=== PATIENT | female | born 1985 | race Two or more races ===

== ENCOUNTER 2017-04-13 21:36 | Emergency (ER) | payer OTHER ==
[~2017-04-13] VITALS: Ht 175.3 cm; Wt 74.1 kg
[~2017-04-13 21:36] MED LIST changes: -ADDE1TAB14 PO; -ADVA115A; -CETI10TA; -LEVO100T5; -PROAAER10; -SERT-138
[2017-04-13] MEDS ORDERED: LEVO100T5 (21:56)
[2017-04-13] MEDS ORDERED: ADVA115A (21:56)
[2017-04-13] MEDS ORDERED: CETI10TA (21:56)
[2017-04-13] MEDS ORDERED: PROAAER10 (21:56)
[2017-04-13] MEDS ORDERED: ADDE1TAB14 PO (21:56)
[2017-04-13] MEDS ORDERED: SERT-138 (21:56)
[2017-04-13 22:38] VITALS: BP 120/79
== END 2017-04-13 22:40 | disposition home or self-care (01) ==
LOC: EDBD 21:36 → M ED 21:36
DX: T78.40XA Allergy, unspecified, initial encounter (principal); X58.XXXA Exposure to other specified factors, initial encounter; Y92.9 Unspecified place or not applicable; Y93.9 Activity, unspecified; Y99.8 Other external cause status; J45.909 Unspecified asthma, uncomplicated; E03.9 Hypothyroidism, unspecified; F17.200 Nicotine dependence, unspecified, uncomplicated; Z79.1 Long term (current) use of non-steroidal anti-inflammatories (NSAID); Z79.899 Other long term (current) drug therapy; Z88.8 Allergy status to other drugs, medicaments and biological substances; Z91.09 Other allergy status, other than to drugs and biological substances

== ENCOUNTER → 2017-04-13 | Outpatient (REF) | payer OTHER ==
[~2017-04-13] MED LIST: ADDE1TAB14 PO; ADVA115A; CETI10TA; LEVO100T5; PERCOCET PO; PROAAER10; SERT-138
== END ==
LOC: M SFHCLERA 20:43
PROVIDERS: ATTEND Nurse Practitioner Family
DX: J02.9 Acute pharyngitis, unspecified (principal)

== ENCOUNTER 2021-07-22 13:29 | Emergency (ER) | payer BC, OTHER ==
[~2021-07-22] VITALS: Ht 177.8 cm; Wt 83.9 kg
[~2021-07-22 13:29] MED LIST changes: +ADDE1TAB14 PO; +ADVA115A; +CETI10TA; +LEVO100T5; +PROAAER10; +SERT-138
[2021-07-22] MEDS ORDERED: LEVO112T2 (13:50)
[2021-07-22 15:02] LABS: BASO # 0.1 10^3/uL (0.0-0.2); BASO % 0.7 % (0.0-1.0); EOS # 0.1 10^3/uL (0.0-0.5); EOS % 1.3 % (0.0-3.0); HEMATOCRIT 38.2 % (36.0-47.0); HEMOGLOBIN 13.1 g/dl (12.0-15.5); LYMPH # 2.7 10^3/uL (1.5-5.0); LYMPH % 31.4 % (24.0-44.0); MEAN CORPUSCULAR HEMOGLOBIN 30.5 pg (27.0-33.0); MEAN CORPUSCULAR HGB CONC 34.3 g/dl (32.0-36.5); MONO # 0.5 10^3/uL (0.0-0.8); MONO % 5.8 % (2.0-8.0); NEUTROPHILS # 5.1 10^3/uL (1.5-8.5); NEUTROPHILS % 60.6 % (36.0-66.0); PLATELET COUNT, AUTOMATED 318 10^3/uL (150-450); RED BLOOD COUNT 4.29 10^6/uL (4.00-5.40); WHITE BLOOD COUNT 8.4 10^3/uL (4.0-10.0)
[2021-07-22 15:33] LABS: BLOOD UREA NITROGEN 15 MG/DL (7-18); CALCIUM LEVEL 9.4 MG/DL (8.5-10.1); CARBON DIOXIDE LEVEL 27 MEQ/L (21-32); CHLORIDE LEVEL 108 MEQ/L (98-107); CK-MB VALUE MASS 1.5 NG/ML (<3.6); CPK CREATINE PHOSPHOKINASE 233 U/L (26-192); CREATININE FOR GFR 0.84 MG/DL (0.55-1.30); GLOMERULAR FILTRATION RATE > 60.0 (>60); GLUCOSE, FASTING 83 MG/DL (70-100); MB/CK RELATIVE INDEX 0.64 (< OR =4); POTASSIUM SERUM 3.8 MEQ/L (3.5-5.1); SODIUM LEVEL 140 MEQ/L (136-145); TROPONIN I < 0.02 NG/ML (< 0.10)
--- NOTE | 2021-07-22 16:03 | REP ---
INDICATION: DIZZY. COMPARISON: NONE. TECHNIQUE: CT BRAIN PERFORMED IN THE AXIAL PLANE. CORONAL RECONSTRUCTION IMAGES ARE PERFORMED. FINDINGS: THE VENTRICLES ARE NORMAL IN SIZE AND POSITION. THERE IS NO MIDLINE SHIFT OR MASS EFFECT. FERRO-WHITE DIFFERENTIATION IS WELL MAINTAINED. THERE IS NO ACUTE INTRACRANIAL HEMORRHAGE OR EXTRA-AXIAL FLUID COLLECTION. BONE WINDOW EXAMINATION IS UNREMARKABLE. VISUALIZED MASTOID AIR CELLS AND PARANASAL SINUSES ARE CLEAR. IMPRESSION: NEGATIVE NONCONTRAST CT BRAIN. <Electronically signed by Trav Montiel > 07/22/21 1600
[2021-07-22] MEDS ORDERED: ISOVUE-370 76% 100ML VIAL As Ordered ONE (17:01)
[2021-07-22 17:11] LABS: MAGNESIUM LEVEL 2.1 MG/DL (1.8-2.4)
[2021-07-22 17:55] LABS: FREE T4 0.93 NG/DL (0.76-1.46); THYROID STIMULATING HORMONE 0.898 uIU/ML (0.358-3.740)
--- NOTE | 2021-07-22 18:44 | REPVR ---
PROCEDURE INFORMATION: Exam: CT Chest With Contrast; Diagnostic Exam date and time: 07/22/2021 5:13 PM Age: 35 years old Clinical indication: Pain; Chest pressure; Additional info: Chest and back pressure and tightness- rule out aaa TECHNIQUE: Imaging protocol: Diagnostic computed tomography of the chest with contrast. 3D rendering (Not supervised by radiologist): MIP and/or 3D reconstructed images were created by the technologist. Radiation optimization: All CT scans at this facility use at least one of these dose optimization techniques: automated exposure control; mA and/or kV adjustment per patient size (includes targeted exams where dose is matched to clinical indication); or iterative reconstruction. Contrast material: ISOVUE 370; Contrast volume: 100 ml; Contrast route: INTRAVENOUS (IV); COMPARISON: No relevant prior studies available. FINDINGS: Thyroid: The partially imaged bilateral thyroid lobes are unremarkable. Lungs: Unremarkable. No consolidation. No masses. Pleural spaces: No pneumothorax. No pleural effusion. Heart: Vasculature: Azygous arch valvular calcifications, normal variant. Pulmonary arteries: No pulmonary artery embolism identified. Aorta: Unremarkable. No aortic aneurysm. Other arteries: Late arterial phase venous admixture in the portal vein. Lymph nodes: No enlarged lymph nodes. Gallbladder and bile ducts: The gallbladder is surgically absent, with metallic clips in the gallbladder fossa. No extrahepatic biliary ductal dilatation or calculus. Spleen: A small medial splenule is present. Bones/joints: No acute abnormality. No acute fracture. Soft tissues: Unremarkable. IMPRESSION: 1. No thoracic aortic aneurysm or dissection identified. 2. No pulmonary artery embolism identified. 3. Prior cholecystectomy. Electronically signed by: Seven Rivera On 07/22/2021 18:43:37 PM
[2021-07-22 18:58] VITALS: BP 122/72
--- NOTE | 2021-07-23 07:50 | ECGEPIP ---
[facility] - ED Test Date: 2021-07-22 Pat Name: MARCELINO PRINCE Department: Room: - Gender: Female [employer]ing [employer]: REGINE : 1985 Requested By: MONALISA YOUNG PA-C. Order Number: [id number] Reading MD: Merlin Alvarez Measurements Intervals [place] Rate: 69 P: 56 MT: 128 QRS: 53 QRSD: 92 T: 42 QT: 408 QTc: 437 Interpretive Statements Normal sinus rhythm with sinus arrhythmia NO PRIORS FOR COMPARISON Electronically Signed on 07-23-2021 7:50:16 EST by Merlin Alvarez
== END 2021-07-22 18:59 | disposition home or self-care (01) ==
LOC: M ED 13:29
DX: M54.9 Dorsalgia, unspecified (principal); R07.9 Chest pain, unspecified; J45.909 Unspecified asthma, uncomplicated; Z79.899 Other long term (current) drug therapy; Z88.8 Allergy status to other drugs, medicaments and biological substances; Z91.89 Other specified personal risk factors, not elsewhere classified
CPT/HCPCS: 70450; 71275; 80048; 82550; 82553; 83735; 84439; 84443; 84484; 84702; 85025; 93005; 99284; Q9967

== ENCOUNTER 2025-09-06 20:34 | Emergency (ER) | payer BC, OTHER ==
[~2025-09-06] VITALS: Ht 177.8 cm; Wt 86.6 kg
[~2025-09-06 20:34] MED LIST changes: +LEVO112T2
[2025-09-06 21:10] LABS: BASO # 0.1 10^3/uL (0.0-0.2); BASO % 0.8 % (0.0-1.0); EOS # 0.1 10^3/uL (0.0-0.5); EOS % 0.9 % (0.0-3.0); LYMPH # 3.7 10^3/uL (1.5-5.0); LYMPH % 55.6 % (24.0-44.0); MONO # 0.2 10^3/uL (0.0-0.8); MONO % 3.2 % (2.0-8.0); NEUTROPHILS # 2.6 10^3/uL (1.5-8.5); NEUTROPHILS % 39.2 % (36.0-66.0); PLATELET COUNT, AUTOMATED 324 10^3/uL (150-450)
[2025-09-06 21:17] LABS: KETONE, URINE AUTO RFX NEGATIVE (NEGATIVE); MUCUS, URINE RFX SMALL (NEGATIVE); NITRITE, URINE AUTO RFX NEGATIVE (NEGATIVE); RBC, URINE AUTO RFX 2 /HPF (0-3); SQUAM EPITHELIAL CELL UR AURFX 1 /HPF (0-6); WBC, URINE AUTO RFX 5 /HPF (0-3)
[2025-09-06 21:18] LABS: LEUKOCYTE ESTERASE UR AUTO RFX TRACE (NEGATIVE)
[2025-09-06 21:39] LABS: ALT/SGPT 21 U/L (7.0-40); AST/SGOT 19 U/L (<34); CALCIUM LEVEL 9.6 MG/DL (8.5-10.1); CARBON DIOXIDE LEVEL 28 MMOL/L (20-31); CHLORIDE LEVEL 104 MMOL/L (98-107); CREATININE FOR GFR 0.86 MG/DL (0.55-1.30); GLOMERULAR FILTRATION RATE 88.1 (>60); POTASSIUM SERUM 4.7 MMOL/L (3.5-5.1); SODIUM LEVEL 140 MMOL/L (136-145)
[2025-09-06 21:40] LABS: HCG, SERUM QUALITATIVE NEGATIVE (NEGATIVE)
[2025-09-06] MEDS ORDERED: ISOVUE-370 76% 100 ML VIAL As Ordered ONE (23:28)
[2025-09-06] MEDS: ONDANSETRON 4MG/2ML VIAL IV ONE (23:42)
[2025-09-06] MEDS: NS (Normal Saline) 0.9% 1,000 ML IV ONE (23:42)
[2025-09-06] MEDS: KETOROLAC 30 MG/ML 1 ML VIAL IV ONE (23:42)
[2025-09-07] VITALS: TEMP 98.3
[2025-09-07 02:00] VITALS: BP 94/52; O2SAT 97
== END 2025-09-07 02:46 | disposition home or self-care (01) ==
LOC: M ED 20:34
DX: A08.4 Viral intestinal infection, unspecified (principal); E03.9 Hypothyroidism, unspecified; F41.9 Anxiety disorder, unspecified; Z88.8 Allergy status to other drugs, medicaments and biological substances; Z91.048 Other nonmedicinal substance allergy status; Z79.51 Long term (current) use of inhaled steroids; Z79.899 Other long term (current) drug therapy
CPT/HCPCS: 74177; 80048; 80076; 81001; 83690; 84703; 85025; 87086; 96361; 96374; 99284; J1885; J2405; Q9967